=== PATIENT | female | born 1950 | race Caucasian/White ===

== ENCOUNTER 2021-08-14 03:57 | Emergency (ER) | payer MEDICARE, SELFPAY ==
[2021-08-14 03:59] VITALS: PULSE 60; RESP 18; O2SAT 99; BMI 35.2
--- NOTE | 2021-08-14 04:03 | XRR_ITS ---
PROCEDURE INFORMATION: Exam: XR Chest Exam date and time: 08/14/2021 4:03 AM Age: 70 years old Clinical indication: Pain; Chest pressure; Additional info: Cp TECHNIQUE: Imaging protocol: XR of the chest. Views: 1 view. COMPARISON: CR Chest 1 [place] [id number] 08/09/2017 8:47 AM FINDINGS: Lungs: There is mild consolidation at the left costophrenic angle consistent with probable pneumonia. The right lung is clear. Pleural spaces: Unremarkable. No pleural effusion. No pneumothorax. Heart/Mediastinum: Unremarkable. No cardiomegaly. Bones/joints: There are degenerative changes throughout the spine. XR/XR chest 1V portable [id number] IMPRESSION: Probable left lung base pneumonia.
--- NOTE | 2021-08-14 04:04 | ECG_ITS ---
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 [id number]
--- NOTE | 2021-08-14 04:09 | ED_ITS ---
Documented by User: Al Campos MD 08/14/21 04:19 HPI - Chest Pain General: Chief Complaint: Chest Pain Stated Complaint: CP Time Seen by Provider: 08/14/21 03:58 Source: patient and EMS Mode of arrival: EMS Limitations: no limitations History of Present Illness: 70-year-old female states that around midnight tonight started having chest pain is been a pressure type pain in the center of her chest. She states the pain is went to her shoulder she has had some nausea with it along with shortness of breath. She states that she thought it may be reflux took some excess foods had some burping but states the pain returned. States pain is improved with nitro her pain which is currently a 2 out of 10 denies any history of heart disease states she had some shortness of breath earlier but that is since resolved as well. No vomiting no abdominal pain no abdominal tenderness. Associated symptoms: Reports dyspnea and nausea; Deny fever(s) Review of Systems Const: Denies: fever(s), chills, body aches or change in appetite Eyes: Denies: blurry vision or eye discomfort ENMT: Denies: throat pain or dental pain Card: Reports: chest pain Resp: Reports: dyspnea GI: Reports: nausea : Denies: dysuria Musc: Denies: neck pain or back pain Skin/Breast: Denies: rash Neuro: Denies: headache(s) Psych: Denies: depression Teofilo/Lymph: Denies: easy bruising All/Imm: Denies: urticaria PFSH ED PFSH: Family History (Updated 08/14/21 @ 04:09 by Al Campos MD) Other CAD (coronary artery disease) Social History (Updated 08/14/21 @ 04:10 by Al Campos MD) Smoking and tobacco status: never smoked Alcohol intake: never Substance/Drug Use: never Physical Exam Const: COMMON NORMALS: no acute distress, patient oriented x3 and healthy appearing HENMT: COMMON NORMALS: normocephalic and atraumatic HEAD & SCALP: normocephalic and atraumatic Eye: COMMON NORMALS: Equal, round and reactive pupils present and EOMs intact bilaterally PUPIL: Yes Equal, round and reactive pupils present Neck/C-Spine: COMMON NORMALS: full ROM and supple Chest: COMMONS NORMALS: normal inspection of the chest and normal palpation of entire chest wall Resp: COMMON NORMALS: normal respiratory effort, No retractions, No use of accessory muscles and clear to auscultation bilaterally AUSCULTATION: clear to auscultation bilaterally Cardio: COMMON NORMALS: regular rate, regular rhythm and No murmurs present (Cardio) RATE: regular rate RHYTHM: regular rhythm GI: COMMON NORMALS: Normal to inspection, nondistended, normoactive bowel sounds present, Soft to palpation, non-tender and no masses PALPATION: Yes Soft to palpation Extremity: COMMON NORMALS: normal to inspection and full ROM Neuro: COMMON NORMALS: patient oriented x3, moves all extremities and no focal motor deficits Psych: COMMON NORMALS: mental status grossly normal, Normal thought process present and cooperative THOUGHT PROCESS: Normal thought process present Skin: COMMON NORMALS: no rashes or lesions noted and no wounds GENERAL SKIN EXAM: no rashes or lesions noted Course Vital Signs: Vital signs: Vital Signs Pulse Rate 56 L 08/14/21 04:22 Respiratory Rate 20 H 08/14/21 04:22 Blood Pressure 166/94 08/14/21 04:22 Pulse Oximetry 97 08/14/21 04:22 MDM - Chest Pain Lab Data : 08/14/21 04:10 08/14/21 04:10 Radiology Impressions Chest X-Ray 08/14/21 04:03 IMPRESSION: Probable left lung base pneumonia. Chest CTA 08/14/21 04:43 IMPRESSION: 1. Motion artifact mildly compromises the examination. No main, central or lobar pulmonary embolus is identified. 2. Solid pulmonary nodules measuring up to 2.5 mm. As per Fleischner Society 2017 guidelines for follow-up and management of pulmonary nodules: For patients at low risk (minimal or absent history of smoking and of other known risk factors), no routine follow-up. For patient at high risk (history of smoking or of other known risk factors), recommend optional CT at 12 months. 3. Mild subcarinal and periportal lymphadenopathy. 4. Coronary artery disease. Laboratory Results WBC 8.9 10^3/uL (4.0-10.0) 08/14/21 04:10 RBC 4.17 10^6/uL (4.1-5.3) 08/14/21 04:10 Hgb 12.5 g/dL (11.5-15.3) 08/14/21 04:10 Hct 37.3 % (37.0-47.0) 08/14/21 04:10 MCV 89.4 fl (81-99) 08/14/21 04:10 MCH 30.0 pg (28.0-34.0) 08/14/21 04:10 MCHC 33.5 g/dL (30.0-36.0) 08/14/21 04:10 RDW 12.3 % (12.1-15.1) 08/14/21 04:10 Plt Count 221 10^3/cmm (130-400) 08/14/21 04:10 MPV 10.6 fL (7.4-10.4) H 08/14/21 04:10 Neut % (Auto) 79.6 % 08/14/21 04:10 Lymph % (Auto) 12.5 % 08/14/21 04:10 [place] % (Auto) 6.0 % 08/14/21 04:10 Eos % (Auto) 1.0 % 08/14/21 04:10 Baso % (Auto) 0.7 % 08/14/21 04:10 Neut # (Auto) 7.07 10^3/uL (1.8-7.7) 08/14/21 04:10 Lymph # (Auto) 1.1 10^3/uL (0.8-4.8) 08/14/21 04:10 [place] # (Auto) 0.5 10^3/uL (0.2-0.9) 08/14/21 04:10 Eos # (Auto) 0.1 10^3/uL (0.0-0.8) 08/14/21 04:10 Baso # (Auto) 0.1 10^3/uL (0.0-0.1) 08/14/21 04:10 Nucleated RBC % (auto) 0 % 08/14/21 04:10 Nucleated RBCs # 0.0 /100WBC 08/14/21 04:10 PT 12.50 SECONDS (12.1-14.9) 08/14/21 04:10 INR 0.91 (0.8-1.2) 08/14/21 04:10 D-Dimer 1.05 ug/mIFEU (0-0.59) H 08/14/21 04:10 Sodium 139 mmol/L (136-145) 08/14/21 04:10 Potassium 4.4 mmol/L (3.5-5.1) 08/14/21 04:10 Chloride 105 mmol/L (98-107) 08/14/21 04:10 Carbon Dioxide 23 mmol/L (22-29) 08/14/21 04:10 Anion Gap 15.4 (5-19) 08/14/21 04:10 BUN 20 mg/dL (8-23) 08/14/21 04:10 Creatinine 0.7 mg/dL (0.5-0.9) 08/14/21 04:10 GFR Calculation Not Reportable 08/14/21 04:10 Glucose 117 mg/dL (65-115) H 08/14/21 04:10 Calculated Osmolality 292 mOsm/kg (285-295) 08/14/21 04:10 Calcium 9.1 mg/dL (8.5-10.5) 08/14/21 04:10 Total Bilirubin 0.2 mg/dL (0.15-1.2) 08/14/21 04:10 AST 20 U/L (0-32) 08/14/21 04:10 ALT 15 U/L (0-33) 08/14/21 04:10 Alkaline Phosphatase 89 IU/L (35-105) 08/14/21 04:10 Troponin T Baseline 12 ng/L (0-10) H 08/14/21 04:10 Troponin T 120 Minute 12.15 ng/L (0-10) H 08/14/21 06:20 Delta Troponin T 0.15 ABS# (0-10) 08/14/21 06:20 Total Protein 6.5 g/dL (6.6-8.7) L 08/14/21 04:10 Albumin 4.4 g/dL (3.5-5.2) 08/14/21 04:10 Globulin 2.1 g/dL (1.3-4.6) 08/14/21 04:10 Lipase 27 U/L (13-60) 08/14/21 04:10 EKG Data EKG 1: I personally reviewed and interpreted this EKG as follows: EKG interpretation date: 08/14/21 EKG interpretation time: 04:06 Interpretation: sinus dayan hr [address] or t wave abnormalities qrs 93 qtc 420 Discharge Plan Discharge Patient Disposition: Home Clinical Impression: Atypical chest pain, Benign essential HTN Prescriptions: New isosorbide mononitrate 30 mg tablet extended release 24 hr 30 mg PO DAILY Qty: 30 0RF aspirin 81 mg tablet,delayed release (DR/EC) 81 mg PO DAILY Qty: 30 0RF Discharge Orders: Discharge ED (Routine); Ordered 08/14/21 Ordered By: Hadley Hudson Discharge Diet: Usual diet Discharge Activity: Limit activity as instructed Patient Instructions: Opioid Safety Activity Restrictions/Additional Instructions: Avoid excess strenuous activity. Return if you have further chest pain start isosorbide mononitrate daily aspirin 81 mg daily Case management will call to make arrangements for you to have an outpatient stress test. Sign Out Sign Out Data: Patient Sign Out occurred on 08/14/21 at 07:09. Patient's care was discussed, and care was transferred from to Hadley Hudson DO. Coding Level of Care Code ED Manager Outpatient for Chg Fwd Exam Comprehensive Documented by User: Hadley Hudson DO 08/14/21 12:20 HPI - Chest Pain General: Chief Complaint: Chest Pain Stated Complaint: CP Time Seen by Provider: 08/14/21 03:58 PFSH ED PFSH: Family History (Updated 08/14/21 @ 04:09 by Al Campos MD) Other CAD (coronary artery disease) Social History (Updated 08/14/21 @ 04:10 by Al Campos MD) Smoking and tobacco status: never smoked Alcohol intake: never Substance/Drug Use: never Course Vital Signs: Vital signs: Vital Signs Pulse Rate 56 L 08/14/21 04:22 Respiratory Rate 20 H 08/14/21 04:22 Blood Pressure 166/94 08/14/21 04:22 Pulse Oximetry 97 08/14/21 04:22 MDM - Chest Pain Medical Decision Making Care assumed a change of shift care assumed a change of shift from Dr. Campos. Chart reviewed. Patient is having little bit of discomfort but is slightly reproducible with palpation on the left upper chest cardiac enzymes negative CTA of the chest was negative we will go and discharge patient home set her up for an outpatient Lexiscan sestamibi stress test will also start on isosorbide mononitrate aspirin daily 81 mg. Return if has further problems. Medical Records I reviewed the patient's medical records. Lab Data I reviewed the patient's lab results. : 08/14/21 04:10 08/14/21 04:10 Radiology Impressions Chest X-Ray 08/14/21 04:03 IMPRESSION: Probable left lung base pneumonia. Chest CTA 08/14/21 04:43 IMPRESSION: 1. Motion artifact mildly compromises the examination. No main, central or lobar pulmonary embolus is identified. 2. Solid pulmonary nodules measuring up to 2.5 mm. As per Fleischner Society 2017 guidelines for follow-up and management of pulmonary nodules: For patients at low risk (minimal or absent history of smoking and of other known risk factors), no routine follow-up. For patient at high risk (history of smoking or of other known risk factors), recommend optional CT at 12 months. 3. Mild subcarinal and periportal lymphadenopathy. 4. Coronary artery disease. Laboratory Results WBC 8.9 10^3/uL (4.0-10.0) 08/14/21 04:10 RBC 4.17 10^6/uL (4.1-5.3) 08/14/21 04:10 Hgb 12.5 g/dL (11.5-15.3) 08/14/21 04:10 Hct 37.3 % (37.0-47.0) 08/14/21 04:10 MCV 89.4 fl (81-99) 08/14/21 04:10 MCH 30.0 pg (28.0-34.0) 08/14/21 04:10 MCHC 33.5 g/dL (30.0-36.0) 08/14/21 04:10 RDW 12.3 % (12.1-15.1) 08/14/21 04:10 Plt Count 221 10^3/cmm (130-400) 08/14/21 04:10 MPV 10.6 fL (7.4-10.4) H 08/14/21 04:10 Neut % (Auto) 79.6 % 08/14/21 04:10 Lymph % (Auto) 12.5 % 08/14/21 04:10 [place] % (Auto) 6.0 % 08/14/21 04:10 Eos % (Auto) 1.0 % 08/14/21 04:10 Baso % (Auto) 0.7 % 08/14/21 04:10 Neut # (Auto) 7.07 10^3/uL (1.8-7.7) 08/14/21 04:10 Lymph # (Auto) 1.1 10^3/uL (0.8-4.8) 08/14/21 04:10 [place] # (Auto) 0.5 10^3/uL (0.2-0.9) 08/14/21 04:10 Eos # (Auto) 0.1 10^3/uL (0.0-0.8) 08/14/21 04:10 Baso # (Auto) 0.1 10^3/uL (0.0-0.1) 08/14/21 04:10 Nucleated RBC % (auto) 0 % 08/14/21 04:10 Nucleated RBCs # 0.0 /100WBC 08/14/21 04:10 PT 12.50 SECONDS (12.1-14.9) 08/14/21 04:10 INR 0.91 (0.8-1.2) 08/14/21 04:10 D-Dimer 1.05 ug/mIFEU (0-0.59) H 08/14/21 04:10 Sodium 139 mmol/L (136-145) 08/14/21 04:10 Potassium 4.4 mmol/L (3.5-5.1) 08/14/21 04:10 Chloride 105 mmol/L (98-107) 08/14/21 04:10 Carbon Dioxide 23 mmol/L (22-29) 08/14/21 04:10 Anion Gap 15.4 (5-19) 08/14/21 04:10 BUN 20 mg/dL (8-23) 08/14/21 04:10 Creatinine 0.7 mg/dL (0.5-0.9) 08/14/21 04:10 GFR Calculation Not Reportable 08/14/21 04:10 Glucose 117 mg/dL (65-115) H 08/14/21 04:10 Calculated Osmolality 292 mOsm/kg (285-295) 08/14/21 04:10 Calcium 9.1 mg/dL (8.5-10.5) 08/14/21 04:10 Total Bilirubin 0.2 mg/dL (0.15-1.2) 08/14/21 04:10 AST 20 U/L (0-32) 08/14/21 04:10 ALT 15 U/L (0-33) 08/14/21 04:10 Alkaline Phosphatase 89 IU/L (35-105) 08/14/21 04:10 Troponin T Baseline 12 ng/L (0-10) H 08/14/21 04:10 Troponin T 120 Minute 12.15 ng/L (0-10) H 08/14/21 06:20 Delta Troponin T 0.15 ABS# (0-10) 08/14/21 06:20 Total Protein 6.5 g/dL (6.6-8.7) L 08/14/21 04:10 Albumin 4.4 g/dL (3.5-5.2) 08/14/21 04:10 Globulin 2.1 g/dL (1.3-4.6) 08/14/21 04:10 Lipase 27 U/L (13-60) 08/14/21 04:10 Discharge Plan Discharge Patient Disposition: Home Clinical Impression: Atypical chest pain, Benign essential HTN Prescriptions: New isosorbide mononitrate 30 mg tablet extended release 24 hr 30 mg PO DAILY Qty: 30 0RF aspirin 81 mg tablet,delayed release (DR/EC) 81 mg PO DAILY Qty: 30 0RF Discharge Orders: Discharge ED (Routine); Ordered 08/14/21 Ordered By: Hadley Hudson Discharge Diet: Usual diet Discharge Activity: Limit activity as instructed Patient Instructions: Opioid Safety Activity Restrictions/Additional Instructions: Avoid excess strenuous activity. Return if you have further chest pain start isosorbide mononitrate daily aspirin 81 mg daily Case management will call to make arrangements for you to have an outpatient stress test. Sign Out Sign Out Data: Patient Sign Out occurred on 08/14/21 at 07:09. Patient's care was discussed, and care was transferred from to Hadley Hudson DO. Coding Level of Care Code ED Manager Outpatient for Chg Fwd Exam Comprehensive
[2021-08-14 04:16] LABS: Basophils # 0.1 10^3/uL (0.0-0.1); Basophils % 0.7 %; Eosinophils # 0.1 10^3/uL (0.0-0.8); Hematocrit 37.3 % (37.0-47.0); Hemoglobin 12.5 g/dL (11.5-15.3); Lymphocytes # 1.1 10^3/uL (0.8-4.8); Lymphocytes % 12.5 %; Mean Corpuscular HGB Conc 33.5 g/dL (30.0-36.0); Mean Corpuscular Volume 89.4 fl (81-99); Mean Platelet Volume 10.6 fL (7.4-10.4); Monocytes # 0.5 10^3/uL (0.2-0.9); Neutrophils # 7.07 10^3/uL (1.8-7.7); Neutrophils % 79.6 %; Nucleated Red Blood Cells % 0 %; Platelet Count 221 10^3/cmm (130-400); Red Blood Count 4.17 10^6/uL (4.1-5.3); Red Cell Distribution Width 12.3 % (12.1-15.1); White Blood Count 8.9 10^3/uL (4.0-10.0)
[2021-08-14 04:21] VITALS: RESP 18
[2021-08-14] MEDS: morphine 4 mg/mL SDV 1 mL IVP (04:21)
[2021-08-14] MEDS: ondansetron 2 mg/ML SDV 2 mL 4 MG IVP (04:21)
[2021-08-14 04:22] VITALS: BP 166/94; PULSE 56; RESP 20; O2SAT 97
--- NOTE | 2021-08-14 04:25 | PC.NURSE ---
patient received via EMS stretcher with IV in place. states chest pain started around midnight, EMS gave NGT x2 in route with some relief. states bilateral leg pain and swelling. states legs cramp anytime she tries to relax them. tele inplace, speech clear respirations even equal and unlabored. managing secretions.
[2021-08-14 04:29] LABS: INR 0.91 (0.8-1.2)
[2021-08-14 04:32] LABS: D Dimer 1.05 ug/mIFEU (0-0.59)
--- NOTE | 2021-08-14 04:43 | CTR_ITS ---
PROCEDURE INFORMATION: Exam: CTA Chest With Contrast Exam date and time: 08/14/2021 4:43 AM Age: 70 years old Clinical indication: Shortness of breath. TECHNIQUE: Imaging protocol: Computed tomographic angiography of the chest with contrast. 3D rendering (Not supervised by radiologist): MIP and/or 3D reconstructed images were created by the technologist. Radiation optimization: All CT scans at this facility use at least one of these dose optimization techniques: automated exposure control; mA and/or kV adjustment per patient size (includes targeted exams where dose is matched to clinical indication); or iterative reconstruction. Contrast material: OMNI 350; Contrast volume: 95 ml; Contrast route: INTRAVENOUS (IV); COMPARISON: CTA Chest-Pulmonary Emb [id number] 06/01/2016 10:47 AM RADIATION DOSE METRICS: Total DLP (mGy-cm): 520.72 FINDINGS: Pulmonary arteries: Motion artifact mildly compromises the examination. No main, central or lobar pulmonary embolus is identified. Aorta: No thoracic aortic aneurysm. Lungs: A solid pulmonary nodule in the right apex measures 2.5 mm (image 106). A solid fissural nodule on the right measures 2.3 mm (image 162). Subsegmental atelectasis at the left base. No pulmonary mass. Pleural spaces: No pleural effusion. No pneumothorax. Heart: Coronary arterial calcifications are noted. No pericardial effusion. Lymph nodes: A periportal lymph node measures 1.3 x 1.1 cm. A subcarinal lymph node measures 1.0 x 2.4 cm (image 225). Diaphragm: No hiatal hernia. Bones/joints: No acute fracture is identified. CT/CT angio chest PE protcl [id number] IMPRESSION: 1. Motion artifact mildly compromises the examination. No main, central or lobar pulmonary embolus is identified. 2. Solid pulmonary nodules measuring up to 2.5 mm. As per Fleischner Society 2017 guidelines for follow-up and management of pulmonary nodules: For patients at low risk (minimal or absent history of smoking and of other known risk factors), no routine follow-up. For patient at high risk (history of smoking or of other known risk factors), recommend optional CT at 12 months. 3. Mild subcarinal and periportal lymphadenopathy. 4. Coronary artery disease.
[2021-08-14 04:48] LABS: Troponin(5th) Baseline 12 ng/L (0-10)
[2021-08-14 04:49] LABS: Albumin Level 4.4 g/dL (3.5-5.2); Alkaline Phosphatase 89 IU/L (35-105); Blood Urea Nitrogen 20 mg/dL (8-23); Calcium 9.1 mg/dL (8.5-10.5); Carbon Dioxide 23 mmol/L (22-29); Chloride 105 mmol/L (98-107); Creatinine Clr Calc Pharmacy 79.2011; Globulin 2.1 g/dL (1.3-4.6); Glucose 117 mg/dL (65-115); Lipase 27 U/L (13-60); Osmolality Calculated 292 mOsm/kg (285-295); Sodium 139 mmol/L (136-145); Total Bilirubin 0.2 mg/dL (0.15-1.2); Total Protein 6.5 g/dL (6.6-8.7)
[2021-08-14 04:52] LABS: Alanine Aminotransferase 15 U/L (0-33); Anion Gap 15.4 (5-19); Aspartate Amino Transferase 20 U/L (0-32); Potassium 4.4 mmol/L (3.5-5.1)
--- NOTE | 2021-08-14 06:04 | ECG_ITS ---
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 Measurements Intervals [place] Rate: 49 P: 42 [place]: 173 QRS: 16 QRSD: 105 T: 51 QT: 468 QTc: 424 Interpretive Statements SINUS BRADYCARDIA Compared to ECG 08/14/2021 04:06:11 No significant changes Electronically Signed On 08-14-2021 17:12:54 PROFESSOR OF COMMUNICATION AND WRITING by Ирина Ken M.D. [id number]
[2021-08-14] MEDS: iohexol 350 mg/mL 100 mL Btl IV (06:56)
[2021-08-14 07:10] LABS: Troponin 5 2HR 12.15 ng/L (0-10)
[2021-08-14 07:11] LABS: Troponin 5 2HR Delta 0.15 ABS# (0-10)
--- NOTE | 2021-08-14 07:58 | ECG_ITS ---
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 Measurements Intervals [place] Rate: 52 P: 69 [place]: 178 QRS: -3 QRSD: 94 T: 37 QT: 420 QTc: 392 Interpretive Statements SINUS BRADYCARDIA Compared to ECG 08/14/2021 06:24:51 No significant changes Electronically Signed On 08-14-2021 17:09:17 DIRECTOR OF DIRECT MARKETING by Ирина Ken M.D. [id number]
--- NOTE | 2021-08-14 14:11 | DCPLANNER ---
Addendum entered by Adelita Perales 09/14/21 14:09: catering and events manager got notification that patient will need to see her primary care physician for the stress test. Insurance will not pay for the test ordered out of the ER. catering and events manager tried to call patient, unable to reach patient or leave a voicemail for patient. Original Note: catering and events manager had message to schedule an outpatient stress test for patient. catering and events manager faxed signed order to centralized scheduling, who will call patient with appointment information.
== END 2021-08-14 08:46 | disposition home or self-care (01) ==
PROVIDERS: Emergency Medicine; Emergency Provider Family Medicine
DX: R07.89 Other chest pain (principal); I10 Essential (primary) hypertension; Z79.82 Long term (current) use of aspirin
CPT/HCPCS: 36415; 71045; 71275; 80053; 83690; 84484; 85025; 85378; 85610; 93005; 96374; 96375; 99284; J2270; J2405; Q9967

== ENCOUNTER 2021-09-26 07:02 | Emergency (ER) | payer MEDICARE, SELFPAY ==
--- NOTE | 2021-09-26 07:06 | XRR_ITS ---
PROCEDURE INFORMATION: Exam: XR Chest Exam date and time: 09/26/2021 7:06 AM Age: 70 years old Clinical indication: Pain; Angina pectoris; Additional info: Chest pain TECHNIQUE: Imaging protocol: XR of the chest. Views: 1 view. COMPARISON: CR (CHEST, ) 08/14/2021 4:31 AM FINDINGS: Lungs: See Soft tissues finding. Pleural spaces: Unremarkable. No pleural effusion. No pneumothorax. Heart/Mediastinum: Accentuated heart size could partially be on the basis of AP technique. Bones/joints: Degenerative change of thoracic spine. Osteopenia. Soft tissues: Epicardial fat tissue or underlying component of atelectasis lower left lung similar to previous. XR/XR chest 1V portable [id number] IMPRESSION: 1. Stable chest without acute process. 2. Atelectasis or epicardial fat pad lower left lung.
--- NOTE | 2021-09-26 07:06 | W.ED.CHESTPA ---
HPI - Chest Pain General: Chief Complaint: Extremity Problem,Nontraumatic Stated Complaint: CHEST PAIN Time Seen by Provider: 09/26/21 07:06 Source: patient Mode of arrival: EMS Limitations: no limitations History of Present Illness: 70-year-old female presents emergency room complaining of some mild chest discomfort on the left side as well as cramping and swelling in her legs. This began around 3 AM this morning she was awake already. She is some mild shortness of breath with it and increasing swelling in her legs the last few days. She was seen a month ago and started on isosorbide mononitrate and scheduled for stress test which was never done. They did start Lasix and potassium. She had not taken her blood pressure medicines yet this morning. Blood pressures continue to be elevated she is also still taking the isosorbide mononitrate. She has no history of DVT. No sudden acute chest pain or shortness of breath. MD complaint: chest pain Onset (ago): hour(s) Timing of current episode: episodic Onset: during rest Pain location: left chest Quality: heaviness Relieving factors: nothing Exacerbating factors: nothing Associated symptoms: Reports dyspnea; Deny abdominal pain, diaphoresis, fever(s), leg edema, nausea, palpitations, sense of impending doom, syncope or vomiting Treatment prior to arrival: aspirin Review of Systems Const: Denies: fever(s) or diaphoresis ENMT: Denies: throat pain, ear or mastoid pain, nasal discharge or nasal congestion Card: Reports: chest pain, edema and swelling of feet/ankles; Denies: palpitations or syncope Resp: Reports: dyspnea GI: Denies: abdominal pain, nausea or vomiting : Denies: flank pain, difficulty voiding, dysuria, urinary frequency or urinary urgency Skin/Breast: Denies: rash or pruritus PFS ED PFSH: Medical History (Updated 09/26/21 @ 13:09 by Hadley Hudson DO) Hypertension Surgical History (Updated 09/26/21 @ 07:33 by Hadley Hudson DO) H/O tubal ligation Hx of tonsillectomy Family History Other CAD (coronary artery disease) Social History Smoking and tobacco status: never smoked Alcohol intake: never Household members: spouse Marital status: Current occupational status: retired Current gender identity: Female Physical Exam Const: GENERAL APPEARANCE: cooperative and comfortable ORIENTATION/CONSCIOUSNESS: Yes awake, Yes oriented to person, Yes oriented to place and Yes oriented to time HENMT: COMMON NORMALS: normocephalic, atraumatic and hearing grossly normal bilaterally HEAD & SCALP: normocephalic and atraumatic Neck/C-Spine: COMMON NORMALS: no JVD Resp: COMMON NORMALS: normal respiratory effort, No retractions, No use of accessory muscles and clear to auscultation bilaterally AUSCULTATION: clear to auscultation bilaterally Cardio: COMMON NORMALS: no JVD, regular rate, regular rhythm and No murmurs present (Cardio) RATE: regular rate RHYTHM: regular rhythm GI: COMMON NORMALS: Soft to palpation and No hepatosplenomegaly present AUSCULTATION: Yes normoactive bowel sounds PALPATION: Yes Soft to palpation, No Tenderness to palpation present (GI), No Guarding due to palpation present (GI) and Yes No hepatosplenomegaly present Extremity: COMMON NORMALS: normal to inspection, capillary refill normal, no clubbing, cyanosis or edema and no calf tenderness GENERAL: Yes edema (+2 LE bilateral) Neuro: SENSORIUM/ORIENTATION: Yes oriented to person, Yes oriented to place and Yes oriented to time Skin: COMMON NORMALS: no rashes or lesions noted GENERAL SKIN EXAM: no rashes or lesions noted Course Vital Signs: Vital signs: Vital Signs Pulse Rate 65 09/26/21 13:38 Respiratory Rate 14 09/26/21 13:38 Blood Pressure 169/68 09/26/21 13:38 Pulse Oximetry 99 09/26/21 13:38 MDM - Chest Pain Medical Decision Making Clinically patient is not in significant heart failure at this time. Labs and imaging reviewed. No evidence of DVT. Blood pressure remains markedly elevated I will increase Lasix and increase lisinopril follow-up with primary care. Return if has further problems. Medical Records I reviewed the patient's medical records. Lab Data I reviewed the patient's lab results. : 09/26/21 09:21 09/26/21 09:21 Radiology Impressions Chest X-Ray 09/26/21 07:06 IMPRESSION: 1. Stable chest without acute process. 2. Atelectasis or epicardial fat pad lower left lung. Laboratory Results WBC 7.3 10^3/uL (4.0-10.0) 09/26/21 09:21 RBC 4.08 10^6/uL (4.1-5.3) L 09/26/21 09:21 Hgb 12.2 g/dL (11.5-15.3) 09/26/21 09: Hct 36.9 % (37.0-47.0) L 09/26/21 09:21 MCV 90.4 fl (81-99) 09/26/21 09:21 MCH 29.9 pg (28.0-34.0) 09/26/21 09: MCHC 33.1 g/dL (30.0-36.0) 09/26/21 09: RDW 12.4 % (12.1-15.1) 09/26/21 09: Plt Count 228 10^3/cmm (130-400) 09/26/21 09: MPV 10.7 fL (7.4-10.4) H 09/26/21 09:21 Neut % (Auto) 80.2 % 09/26/21 09:21 Lymph % (Auto) 13.0 % 09/26/21 09:21 [place] % (Auto) 5.2 % 09/26/21 09:21 Eos % (Auto) 0.8 % 09/26/21:21 Baso % (Auto) 0.5 % 09/26/21:21 Neut # (Auto) 5.84 10^3/uL (1.8-7.7) 09/26/21 09:21 Lymph # (Auto) 1.0 10^3/uL (0.8-4.8) 09/26/21 09:21 [place] # (Auto) 0.4 10^3/uL (0.2-0.9) 09/26/21 09: Eos # (Auto) 0.1 10^3/uL (0.0-0.8) 09/26/21 09:21 Baso # (Auto) 0.0 10^3/uL (0.0-0.1) 09/26/21 09: Nucleated RBC % (auto) 0 % 09/26/21 09:21 Nucleated RBCs # 0.0 /100WBC 09/26/21 09:21 Sodium 138 mmol/L (136-145) 09/26/21 09:21 Potassium 3.5 mmol/L (3.5-5.1) 09/26/21 09:21 Chloride 101 mmol/L (98-107) 09/26/21 09:21 Carbon Dioxide 24 mmol/L (22-29) 09/26/21 09:21 Anion Gap 16.5 (5-19) 09/26/21 09:21 BUN 14 mg/dL (8-23) 09/26/21 09:21 Creatinine 0.8 mg/dL (0.5-0.9) 09/26/21 09:21 GFR Calculation Not Reportable 09/26/21 09:21 Glucose 124 mg/dL (65-115) H 09/26/21 09:21 Calculated Osmolality 288 mOsm/kg (285-295) 09/26/21 09:21 Calcium 9.6 mg/dL (8.5-10.5) 09/26/21 09:21 Total Bilirubin 0.4 mg/dL (0.15-1.2) 09/26/21 09:21 AST 12 U/L (0-32) 09/26/21 09:21 ALT 12 U/L (0-33) 09/26/21 09:21 Alkaline Phosphatase 74 IU/L (35-105) 09/26/21 09:21 Troponin T Baseline 14 ng/L (0-10) H 09/26/21 09:21 Troponin T 120 Minute 14.38 ng/L (0-10) H 09/26/21 11:42 Delta Troponin T 0.38 ABS# (0-10) 09/26/21 11:42 Total Protein 6.1 g/dL (6.6-8.7) L 09/26/21 09:21 Albumin 4.6 g/dL (3.5-5.2) 09/26/21 09:21 Globulin 1.5 g/dL (1.3-4.6) 09/26/21 09:21 Discharge Plan Discharge Patient Disposition: Home Clinical Impression: HTN (hypertension), Swelling of both lower extremities, Chest pain Condition: Stable Prescriptions: New lisinopril 20 mg tablet 20 mg PO DAILY Qty: 30 0RF Changed Lasix 40 mg tablet 60 mg PO DAILY Qty: 30 0RF potassium chloride 10 mEq tablet extended release 10 meq PO BID Qty: 30 0RF No Action isosorbide mononitrate 30 mg tablet extended release 24 hr 30 mg PO DAILY Qty: 30 0RF aspirin 81 mg tablet,delayed release (DR/EC) 81 mg PO DAILY Qty: 30 0RF Discharge Orders: Discharge ED (Routine); Ordered 09/26/21 Ordered By: Hadley Hudson Discharge Diet: Cardiac Discharge Activity: Increase activity as tolerated Patient Instructions: Opioid Safety Activity Restrictions/Additional Instructions: Add lisinopril, increase Lasix and potassium as outlined below. Recheck with primary care doctor next week strongly recommend you follow through with the stress test that was previously recommended. 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
[2021-09-26 07:09] VITALS: BMI 37.5
[2021-09-26 07:16] VITALS: BP 193/109; PULSE 47; RESP 13; O2SAT 96
[2021-09-26 07:46] VITALS: BP 178/89; PULSE 73; RESP 19; O2SAT 98
[2021-09-26] MEDS: FUROsemide 10 mg/mL SDV 10mL 60 MG IVP (08:00)
[2021-09-26] MEDS: enalaprilat 1.25 mg/mL Inj IVP (08:01)
[2021-09-26] MEDS: hyDRALAzine 20 mg/mL INJ 1 mL 10 MG IVP (08:02)
--- NOTE | 2021-09-26 08:02 | USCV_ITS ---
Rhonda Quintana Age: 70 Gender: F : 1950 Exam Date: 09/26/2021 08:18 Ordering Phys: Hadley Hudson DO Technologist: SHERRY Exam Location: [facility] [place]_ Indication: ble swelling HISTORY: Lower extremity swelling. PROCEDURES: Venous duplex imaging was performed in bilateral lower extremities The following venous structures were evaluated: common femoral vein, profunda vein, proximal portion of the greater saphenous vein, superficial femoral vein, and the popliteal vein. In addition, the posterior tibial and peroneal trunk were evaluated. Serial compression, augmentation maneuvers, and spectral Doppler flow evaluation were performed. FINDINGS: Examination was technically limited due to body habitus. No evidence of DVT seen in any vessel visualized at this time. Bilat. Buchanan's cyst seen Bilat Edema seen in lower legs CONCLUSIONS . No evidence of right lower extremity DVT. No evidence of left lower extremity DVT. Bilateral popliteal cysts measuring 2.7 x 1.3 x 4.1 cm on right and 3.0 x 1.5x 4.7 cm on left Connor Rubi MD (Electronically Signed) Final Date: 26 September 2021 11:36 Amended: 30 September 2021 13:14 C
[2021-09-26 08:32] VITALS: RESP 16; O2SAT 98
[2021-09-26] MEDS: morphine 4 mg/mL SDV 1 mL IVP ×2 (08:32→13:37)
[2021-09-26 08:46] VITALS: BP 154/71; PULSE 73; RESP 12; O2SAT 97
--- NOTE | 2021-09-26 09:06 | ECG_ITS ---
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 Measurements Intervals [place] Rate: 70 P: 2 [place]: 175 QRS: -1 QRSD: 95 T: 44 QT: 413 QTc: 448 Interpretive Statements SINUS RHYTHM Compared to ECG 08/14/2021 08:05:49 Sinus bradycardia no longer present Electronically Signed On 09-26-2021 18:54:00 CDT by Willie Munguia M.D. [id number]
[2021-09-26 09:33] LABS: Basophils % 0.5 %; Eosinophils # 0.1 10^3/uL (0.0-0.8); Eosinophils % 0.8 %; Hematocrit 36.9 % (37.0-47.0); Hemoglobin 12.2 g/dL (11.5-15.3); Mean Corpuscular HGB Conc 33.1 g/dL (30.0-36.0); Mean Corpuscular Hemoglobin 29.9 pg (28.0-34.0); Mean Corpuscular Volume 90.4 fl (81-99); Mean Platelet Volume 10.7 fL (7.4-10.4); Monocytes # 0.4 10^3/uL (0.2-0.9); Monocytes % 5.2 %; Neutrophils # 5.84 10^3/uL (1.8-7.7); Neutrophils % 80.2 %; Nucleated Red Blood Cells % 0 %; Platelet Count 228 10^3/cmm (130-400); Red Blood Count 4.08 10^6/uL (4.1-5.3); Red Cell Distribution Width 12.4 % (12.1-15.1); White Blood Count 7.3 10^3/uL (4.0-10.0)
[2021-09-26 10:00] LABS: Troponin(5th) Baseline 14 ng/L (0-10)
[2021-09-26 10:20] LABS: Alanine Aminotransferase 12 U/L (0-33); Albumin Level 4.6 g/dL (3.5-5.2); Alkaline Phosphatase 74 IU/L (35-105); Anion Gap 16.5 (5-19); Aspartate Amino Transferase 12 U/L (0-32); Blood Urea Nitrogen 14 mg/dL (8-23); Calcium 9.6 mg/dL (8.5-10.5); Carbon Dioxide 24 mmol/L (22-29); Chloride 101 mmol/L (98-107); Globulin 1.5 g/dL (1.3-4.6); Glucose 124 mg/dL (65-115); Osmolality Calculated 288 mOsm/kg (285-295); Potassium 3.5 mmol/L (3.5-5.1); Sodium 138 mmol/L (136-145); Total Bilirubin 0.4 mg/dL (0.15-1.2); Total Protein 6.1 g/dL (6.6-8.7)
[2021-09-26 12:47] LABS: Troponin 5 2HR 14.38 ng/L (0-10); Troponin 5 2HR Delta 0.38 ABS# (0-10)
--- NOTE | 2021-09-26 13:06 | ECG_ITS ---
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 Measurements Intervals [place] Rate: 67 P: 60 [place]: 175 QRS: 31 QRSD: 99 T: 54 QT: 423 QTc: 449 Interpretive Statements SINUS RHYTHM WITH SINUS ARRHYTHMIA Compared to ECG 09/26/2021 08:09:40 No significant changes Electronically Signed On 09-26-2021 18:52:05 CDT by Willie Munguia M.D. [email or web address] - [id number]
[2021-09-26] MEDS: orphenadrine 30 mg/mL Inj 2 mL 60 MG IVP (13:36)
[2021-09-26 13:37] VITALS: RESP 19; O2SAT 98
[2021-09-26 13:38] VITALS: BP 169/68; PULSE 65; RESP 14; O2SAT 99
== END 2021-09-26 13:49 | disposition home or self-care (01) ==
PROVIDERS: Emergency Provider Family Medicine
DX: R07.9 Chest pain, unspecified (principal); I10 Essential (primary) hypertension; M79.89 Other specified soft tissue disorders; Z79.82 Long term (current) use of aspirin
CPT/HCPCS: 71045; 80053; 84484; 85025; 93005; 93970; 96374; 96375; 96376; 99284; J0360; J1940; J2270; J2360; J3490

== ENCOUNTER → 2022-01-24 12:10 | Outpatient (BNVA) | payer MEDICARE, SELFPAY | PROVIDERS: PCP Family Medicine; Visit Provider Nurse Practitioner Family | DX: R11.0 Nausea (principal); R00.1 Bradycardia, unspecified; R07.9 Chest pain, unspecified; M79.89 Other specified soft tissue disorders; I10 Essential (primary) hypertension; K52.9 Noninfective gastroenteritis and colitis, unspecified; K21.9 Gastro-esophageal reflux disease without esophagitis | CPT/HCPCS: 80053; 80061; 84443 ==

== ENCOUNTER → 2022-03-14 09:02 | Outpatient (BNVA) | payer MEDICARE, SELFPAY | PROVIDERS: PCP Family Medicine; Visit Provider Nurse Practitioner Family | DX: E87.6 Hypokalemia (principal); M79.89 Other specified soft tissue disorders; I10 Essential (primary) hypertension; R11.0 Nausea; K21.9 Gastro-esophageal reflux disease without esophagitis; E78.5 Hyperlipidemia, unspecified; R00.1 Bradycardia, unspecified | CPT/HCPCS: 80053 ==

== ENCOUNTER → 2022-04-01 12:44 | Outpatient (BNVA) | payer MEDICARE, SELFPAY | PROVIDERS: PCP Family Medicine; Visit Provider Internal Medicine | DX: R07.9 Chest pain, unspecified (principal); I10 Essential (primary) hypertension | CPT/HCPCS: 99203; 99204 ==

== ENCOUNTER 2022-05-20 12:25 | Outpatient (CLI) | payer MEDICARE, SELFPAY ==
--- NOTE | 2022-05-20 12:45 | USCV_ITS ---
Rhonda Quintana Age: 71 Gender: F : 1950 Exam Date: 05/20/2022 13:19 Ordering Phys: Malinda Villalta NP Technologist: Exam Location: [facility] [place] Indication: chest pain BP: / HR: 58 Rhythm: Sinus Technical Quality: Adequate MEASUREMENTS (Male / Female) Normal Values 2D ECHO LV Diastolic Diameter PLAX 4.6 cm 4.2 - 5.9 / 3.9 - 5.3 cm LV Systolic Diameter PLAX 2.7 cm IVS Diastolic Thickness 1.2 cm 0.6 - 1.0 / 0.6 - 0.9 cm IVS Systolic Thickness 1.3 cm LVPW Diastolic Thickness 0.9 cm 0.6 - 1.0 / 0.6 - 0.9 cm LVPW Systolic Thickness 1.1 cm LVOT Diameter 2.1 cm LV Ejection Fraction 2D Teich 73.1 % LV Ejection Fraction MOD 2C 59.5 % LV Ejection Fraction 2C AL 61.0 % LA Diameter 3.9 cm M-MODE Aortic Annulus Diameter 3.2 cm LA Ao Ratio MM 1.3 MV E Point Septal Separation 0.9 cm DOPPLER AV Peak Velocity 160.0 cm/s LVOT Peak Velocity 89.0 cm/s AV Area Cont Eq vti 2.0 cm squared AV Area Cont Eq pk 1.9 cm squared MV Area PHT 5.0 cm squared Mitral E to A Ratio 0.7 MV E' Velocity 57.5 cm/s Mitral E to MV E' Ratio 12.5 Mitral E to LV E' Lateral Ratio 18.8 Mitral E to LV E' Septal Ratio 9.4 TR Peak Velocity 323.7 cm/s TR Peak Gradient 41.9 mmHg TV Peak E Velocity 130.0 cm/s Right Atrial Pressure 3.0 mmHg Pulmonary Artery Systolic Pressu 44.9 mmHg RV Acceleration Time 0.1 s FINDINGS Left Ventricle Normal left ventricular size and systolic function, EF 61 %. Grade I/IV diastolic dysfunction (abnormal relaxation filling pattern), normal to mildly elevated filling pressures. Right Ventricle The right ventricle is normal in size and function. Right Atrium The right atrium is normal in size. Left Atrium The left atrium is normal in size. Mitral Valve Thickened mitral valve. Mild mitral valve regurgitation. Aortic Valve Thickened aortic valve. Tricuspid Valve Trace tricuspid valve regurgitation. Pulmonic Valve Pulmonic valve not well visualized. Pericardium Normal pericardium without effusion. Aorta Normal ascending aorta dimension. IVC Inferior vena cava not visualized. CONCLUSIONS Normal left ventricular size and systolic function, EF 61 %. Grade I/IV diastolic dysfunction (abnormal relaxation filling pattern), normal to mildly elevated filling pressures. Thickened mitral valve. Mild mitral valve regurgitation. Thickened aortic valve. Trace tricuspid valve regurgitation. Estimated pulmonary artery peak systolic pressure 45 mmHg There is no pericardial effusion. There are no intracardiac masses. No similar previous studies are available for comparison Dr Erendira Marino MD [facility] (Electronically Signed) Final Date: 21 May 2022 20:24 S
--- NOTE | 2022-05-20 13:10 | CT_ITS ---
WS: [id number] CT CHEST TECHNIQUE: Noncontrast CT of the chest with coronal and sagittal reformatted images. CLINICAL INFORMATION: enlarged supraclavicular lymphnode COMPARISON: CTA chest 08/14/21 DLP: 704.[address] scans at [facility] use at least one of these dose optimization techniques: automated e xposure control; mA and/or kV adjustment per patient size (includes targeted exams where dose is matc hed to clinical indication); or iterative reconstruction. FINDINGS: No acute pulmonary infiltrates. Lungs well aerated. Slight subsegmental atelectasis LEFT lower lobe. Previously described RIGHT upper lobe pulmonary nodule laterally is difficult to visualize today and appears stable measuring 2.3 mm. Tiny nodule along the RIGHT fissure also appears stable. No new or s uspicious pulmonary parenchymal opacities. Hypertrophic changes thoracic spine. Small esophageal hiatal hernia. Adrenal glands are normal. CT/CT chest wo con [id number] IMPRESSION: 1. Previously described tiny RIGHT upper lobe pulmonary nodules are unchanged. 2. No new suspicious pulmonary parenchymal opacities. 3. Small esophageal hiatal hernia. 4. No other significant changes compared to previous.
== END 2022-05-20 12:26 | disposition home or self-care (01) ==
LOC: RAD 12:25
PROVIDERS: PCP Nurse Practitioner Family; Visit Provider Nurse Practitioner Family
DX: I10 Essential (primary) hypertension (principal); M79.89 Other specified soft tissue disorders; R00.1 Bradycardia, unspecified; R59.0 Localized enlarged lymph nodes; R91.1 Solitary pulmonary nodule; I05.9 Rheumatic mitral valve disease, unspecified; I35.8 Other nonrheumatic aortic valve disorders
CPT/HCPCS: 71250; 93306

== ENCOUNTER 2023-01-12 09:19 | Emergency (ER) | payer MEDICARE, SELFPAY ==
[2023-01-12 09:26] VITALS: BP 225/96; PULSE 63; RESP 18; TEMP 36.6; O2SAT 99
--- NOTE | 2023-01-12 09:39 | CTR_ITS ---
PROCEDURE INFORMATION: Exam: CT Head Without Contrast Exam date and time: 01/12/2023 10:05 AM Age: 72 years old Clinical indication: Pain/headache. TECHNIQUE: Imaging protocol: Computed tomography of the head without contrast. Radiation optimization: All CT scans at this facility use at least one of these dose optimization techniques: automated exposure control; mA and/or kV adjustment per patient size (includes targeted exams where dose is matched to clinical indication); or iterative reconstruction. REPORTING DATA: Count of CT and Cardiac NM exams in prior 12 months: This patient has received [address] and 0 known cardiac nuclear medicine studies in the 12 months prior to the current study. COMPARISON: No relevant prior studies available. RADIATION DOSE METRICS: Total DLP (mGy-cm): 1194.08 FINDINGS: Brain: No acute intracranial hemorrhage. 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 No mass, mass effect or midline shift. There is no evidence of acute large vessel infarct. There is mild patchy subcortical and periventricular hypodensity, most commonly associated with small vessel ischemic disease of indeterminate age. The posterior fossa is grossly unremarkable; however, it is partially obscurred by beam hardening artifact. Cerebral ventricles: The ventricles are prominent, compatible with mild parenchymal volume loss. Paranasal sinuses: Retention cysts or polyps in the maxillary sinuses. Mastoid air cells: No mastoid effusion. Orbital cavities: The visualized orbits are unremarkable. Bones/joints: No acute fracture is seen. Soft tissues: No significant scalp soft tissue swelling. CT/CT head wo con* [id number] IMPRESSION: 1. 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 Consider MRI to further assess if clinically concern for acute lacunar infarct. 2. Mild senescent changes as above. 3. No acute intracranial hemorrhage.
--- NOTE | 2023-01-12 09:42 | W.ED.HA ---
HPI - Headache General: Chief Complaint: Headache Stated Complaint: n/v, headache Time Seen by Provider: 01/12/23 09:27 Source: patient Mode of arrival: ambulatory Limitations: no limitations History of Present Illness: 72-year-old female states she has been having nausea vomiting over the last 3 days. She is also had some left-sided neck pain is worse with movement and palpation along with a headache. She denies any fever she denies any abdominal pain she denies any worsening improving factors. Associated symptoms: Reports nausea and vomiting; Deny chest pain, fever(s) or rash Review of Systems Const: Denies: fever(s), chills, body aches or change in appetite Eyes: Denies: blurry vision or eye discomfort ENMT: Denies: throat pain or dental pain Card: Denies: chest pain Resp: Denies: dyspnea GI: Reports: nausea and vomiting; Denies: abdominal pain Musc: Denies: neck pain or back pain Skin/Breast: Denies: rash Neuro: Reports: headache(s) PFSH ED PFSH: Medical History Hypertension Surgical History H/O tubal ligation Hx of tonsillectomy Family History Other CAD (coronary artery disease) Social History Smoking and tobacco status: never smoked Alcohol intake: never Substance/Drug Use: never Household members: spouse Marital status: Current occupational status: retired Current gender identity: Female Physical Exam Const: COMMON NORMALS: no acute distress, patient oriented x3 and healthy appearing HENMT: COMMON NORMALS: normocephalic and atraumatic HEAD & SCALP: normocephalic and atraumatic Eye: COMMON NORMALS: Equal, round and reactive pupils present PUPIL: Yes Equal, round and reactive pupils present Neck/C-Spine: COMMON NORMALS: full ROM and supple OTHER: tender over left neck Chest: COMMONS NORMALS: normal inspection of the chest and normal palpation of entire chest wall Resp: COMMON NORMALS: normal respiratory effort, No retractions, No use of accessory muscles and clear to auscultation bilaterally AUSCULTATION: clear to auscultation bilaterally Cardio: COMMON NORMALS: regular rate, regular rhythm and No murmurs present (Cardio) RATE: regular rate RHYTHM: regular rhythm GI: COMMON NORMALS: Normal to inspection, nondistended, normoactive bowel sounds present, Soft to palpation, non-tender and no masses PALPATION: Yes Soft to palpation Extremity: COMMON NORMALS: normal to inspection and full ROM Neuro: COMMON NORMALS: patient oriented x3, moves all extremities and no focal motor deficits Psych: COMMON NORMALS: mental status grossly normal, Normal thought process present and cooperative THOUGHT PROCESS: Normal thought process present Skin: COMMON NORMALS: no rashes or lesions noted and no wounds GENERAL SKIN EXAM: no rashes or lesions noted Course Vital Signs: Vital signs: Vital Signs Temperature 97.9 F 01/12/23 09:26 Pulse Rate 64 01/12/23 10:32 Respiratory Rate 18 01/12/23 10:32 Blood Pressure 240/98 01/12/23 10:32 Pulse Oximetry 98 01/12/23 10:32 Oxygen Delivery Me thod Room Air 01/12/23 10:32 MDM - Headache Medical Decision Making Patient presents here with nausea vomiting along with a headache she feels much improved after Zofran and morphine head CT here is normal no signs of meningitis blood work is normal as well besides a hypokalemia she states she is on potassium tablet daily but has not been taking it due to her nausea did give her potassium here we will write her for Zofran she is to follow-up with PCP and return if worsening. Medical Records I reviewed the patient's medical records. Lab Data I reviewed the patient's lab results. 01/12/23 09:53 01/12/23 09:[address] 01/12/23 09:39 IMPRESSION: 1. 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 Consider MRI to further assess if clinically concern for acute lacunar infarct. 2. Mild senescent changes as above. 3. No acute intracranial hemorrhage. Laboratory Results WBC 9.3 10^3/uL (4.0-10.0) 01/12/23 09:53 RBC 4.13 10^6/uL (4.1-5.3) 01/12/23 09:53 Hgb 12.4 g/dL (11.5-15.3) 01/12/23 09:53 Hct 35.8 % (37.0-47.0) L 01/12/23 09:53 MCV 86.7 fl (81-99) 01/12/23 09:53 MCH 30.0 pg (28.0-34.0) 01/12/23 09:53 MCHC 34.6 g/dL (30.0-36.0) 01/12/23 09:53 RDW 12.6 % (12.1-15.1) 01/12/23 09:53 Plt Count 217 10^3/cmm (130-400) 01/12/23 09:53 MPV 9.9 fL (7.4-10.4) 01/12/23 09:53 Neut % (Auto) 80.3 % 01/12/23 09:53 Lymph % (Auto) 12.2 % 01/12/23 09:53 [place] % (Auto) 6.4 % 01/12/23 09:53 Eos % (Auto) 0.3 % 01/12/23 09:53 Baso % (Auto) 0.5 % 01/12/23 09:53 Neut # (Auto) 7.48 10^3/uL (1.8-7.7) 01/12/23 09:53 Lymph # (Auto) 1.1 10^3/uL (0.8-4.8) 01/12/23 09:53 [place] # (Auto) 0.6 10^3/uL (0.2-0.9) 01/12/23 09:53 Eos # (Auto) 0.0 10^3/uL (0.0-0.8) 01/12/23 09:53 Baso # (Auto) 0.1 10^3/uL (0.0-0.1) 01/12/23 09:53 Nucleated RBC % (auto) 0 % 01/12/23 09:53 Nucleated RBCs # 0.0 /100WBC 01/12/23 09:53 Sodium 138 mmol/L (136-145) 01/12/23 09:53 Potassium 2.7 mmol/L (3.5-5.1) L* 01/12/23 09:53 Chloride 98 mmol/L (98-107) 01/12/23 09:53 Carbon Dioxide 25 mmol/L (22-29) 01/12/23 09:53 Anion Gap 17.7 (5-19) 01/12/23 09:53 BUN 16 mg/dL (8-23) 01/12/23 09:53 Creatinine 1.0 mg/dL (0.5-0.9) H 01/12/23 09:53 GFR Calculation Not Reportable 01/12/23 09:53 Glucose 98 mg/dL (65-115) 01/12/23 09:53 Calculated Osmolality 287 mOsm/kg (285-295) 01/12/23 09:53 Calcium 9.4 mg/dL (8.5-10.5) 01/12/23 09:53 Total Bilirubin 0.7 mg/dL (0.15-1.2) 01/12/23 09:53 AST 12 U/L (0-32) 01/12/23 09:53 ALT 12 U/L (0-33) 01/12/23 09:53 Alkaline Phosphatase 80 U/L (35-105) 01/12/23 09:53 Total Protein 7.0 g/dL (6.6-8.7) 01/12/23 09:53 Albumin 4.6 g/dL (3.5-5.2) 01/12/23 09:53 Globulin 2.4 g/dL (1.3-4.6) 01/12/23 09:53 Lipase 19 U/L (13-60) 01/12/23 09:53 Discharge Plan Discharge Patient Disposition: Home Clinical Impression: Headache, Hypokalemia, Vomiting Condition: Stable Prescriptions: No Action ondansetron HCl 4 mg tablet 4 mg PO Q4H PRN (Reason: nausea and vomiting) Qty: 90 1RF pantoprazole [Protonix] 40 mg tablet,delayed release (DR/EC) 40 mg PO DAILY 90 Days Qty: 90 1RF potassium chloride 20 mEq tablet extended release 20 meq PO DAILY 90 Days Qty: 90 1RF hydrochlorothiazide 50 mg tablet 25 mg PO DAILY hydrochlorothiazide 25 mg tablet 25 mg PO DAILY 90 Days Qty: 90 1RF simvastatin 20 mg tablet 20 mg PO DAILY 90 Days Qty: 90 1RF Hold Instructions: leg cramps isosorbide mononitrate 30 mg tablet extended release 24 hr See Rx Instructions .ROUTE .COMPLEX Qty: 30 0RF Dose Instruction: Take 1 tablet by mouth once daily Rx Instructions: Take 1 tablet by mouth once daily clindamycin HCl 300 mg capsule 300 mg PO TID Qty: 30 0RF aspirin 81 mg tablet,delayed release (DR/EC) 81 mg PO DAILY Qty: 30 0RF Discharge Orders: Discharge ED (Routine); Ordered 01/12/23 Ordered By: Al Campos Referrals: Malinda Villalta NP [Primary Care Provider] - Discharge Diet: Advance as tolerated Discharge Activity: Resume usual activity Patient Instructions: Acute Headache (ED), Acute Nausea and Vomiting (ED) Coding Level of Care Code ED 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
[2023-01-12 09:59] LABS: Basophils # 0.1 10^3/uL (0.0-0.1); Basophils % 0.5 %; Eosinophils % 0.3 %; Hematocrit 35.8 % (37.0-47.0); Hemoglobin 12.4 g/dL (11.5-15.3); Lymphocytes # 1.1 10^3/uL (0.8-4.8); Lymphocytes % 12.2 %; Mean Corpuscular HGB Conc 34.6 g/dL (30.0-36.0); Mean Corpuscular Volume 86.7 fl (81-99); Mean Platelet Volume 9.9 fL (7.4-10.4); Monocytes # 0.6 10^3/uL (0.2-0.9); Monocytes % 6.4 %; Neutrophils # 7.48 10^3/uL (1.8-7.7); Neutrophils % 80.3 %; Nucleated Red Blood Cells % 0 %; Platelet Count 217 10^3/cmm (130-400); Red Blood Count 4.13 10^6/uL (4.1-5.3); Red Cell Distribution Width 12.6 % (12.1-15.1); White Blood Count 9.3 10^3/uL (4.0-10.0)
[2023-01-12 10:16] LABS: Alanine Aminotransferase 12 U/L (0-33); Albumin Level 4.6 g/dL (3.5-5.2); Alkaline Phosphatase 80 U/L (35-105); Anion Gap 17.7 (5-19); Aspartate Amino Transferase 12 U/L (0-32); Blood Urea Nitrogen 16 mg/dL (8-23); Calcium 9.4 mg/dL (8.5-10.5); Carbon Dioxide 25 mmol/L (22-29); Chloride 98 mmol/L (98-107); Creatinine Clr Calc Pharmacy 63.1031; Globulin 2.4 g/dL (1.3-4.6); Glucose 98 mg/dL (65-115); Lipase 19 U/L (13-60); Osmolality Calculated 287 mOsm/kg (285-295); Sodium 138 mmol/L (136-145); Total Bilirubin 0.7 mg/dL (0.15-1.2)
[2023-01-12 10:22] LABS: Potassium 2.7 mmol/L (3.5-5.1)
[2023-01-12] MEDS: hyDRALAzine 20 mg/mL INJ 1 mL 10 MG IVP (10:31)
[2023-01-12] MEDS: ondansetron 2 mg/ML SDV 2 mL 4 MG IVP (10:31)
[2023-01-12 10:32] VITALS: BP 240/98; PULSE 64; RESP 18; O2SAT 98
[2023-01-12] MEDS: morphine 4 mg/mL SDV 1 mL IVP (10:32)
[2023-01-12] MEDS: potassium chloride ER 20 mEq Tablet 60 MEQ PO (10:51)
[2023-01-12 11:23] VITALS: BP 173/89
== END 2023-01-12 11:24 | disposition home or self-care (01) ==
PROVIDERS: Emergency Provider Emergency Medicine; PCP Nurse Practitioner Family
DX: R51.9 Headache, unspecified (principal); E87.6 Hypokalemia; R11.11 Vomiting without nausea; Z79.82 Long term (current) use of aspirin; I10 Essential (primary) hypertension
CPT/HCPCS: 36415; 70450; 80053; 83690; 85025; 96374; 96375; 99285; J0360; J2270; J2405

== ENCOUNTER → 2023-02-05 09:49 | Outpatient (BNVA) | payer MEDICARE, SELFPAY | PROVIDERS: PCP Nurse Practitioner Family; Visit Provider Nurse Practitioner Family | DX: E87.6 Hypokalemia (principal); E78.5 Hyperlipidemia, unspecified; I10 Essential (primary) hypertension; M79.89 Other specified soft tissue disorders; R11.0 Nausea; K21.9 Gastro-esophageal reflux disease without esophagitis; R25.2 Cramp and spasm; G25.81 Restless legs syndrome; R20.2 Paresthesia of skin; R53.83 Other fatigue; E55.9 Vitamin D deficiency, unspecified | CPT/HCPCS: 80053; 80061; 82306; 82607; 82746; 83550; 83735 ==

== ENCOUNTER → 2023-08-15 13:18 | Outpatient (BNVA) | payer MEDICARE, SELFPAY | PROVIDERS: PCP Nurse Practitioner Family; Visit Provider Nurse Practitioner Family | DX: I10 Essential (primary) hypertension (principal); E78.5 Hyperlipidemia, unspecified; E55.9 Vitamin D deficiency, unspecified; R00.1 Bradycardia, unspecified; M79.89 Other specified soft tissue disorders; R11.0 Nausea; K21.9 Gastro-esophageal reflux disease without esophagitis; E87.6 Hypokalemia; G25.81 Restless legs syndrome; R53.83 Other fatigue; E78.2 Mixed hyperlipidemia | CPT/HCPCS: 80053; 80061; 82306; 84443 ==

== ENCOUNTER → 2023-12-16 12:10 | Outpatient (BNVA) | payer MEDICARE, SELFPAY | PROVIDERS: PCP Nurse Practitioner Family; Visit Provider Nurse Practitioner Family | DX: M25.551 Pain in right hip (principal); I10 Essential (primary) hypertension; R00.1 Bradycardia, unspecified; Z79.899 Other long term (current) drug therapy | CPT/HCPCS: 80053; 85025 ==

== ENCOUNTER → 2024-04-08 10:24 | Outpatient (BNVA) | payer MEDICARE, SELFPAY | PROVIDERS: PCP Nurse Practitioner Family; Visit Provider Nurse Practitioner Family | DX: R07.89 Other chest pain (principal) | CPT/HCPCS: 93005 ==

== ENCOUNTER → 2024-09-28 12:56 | Outpatient (BNVA) | payer MEDICARE, SELFPAY | PROVIDERS: PCP Nurse Practitioner Family; Visit Provider Nurse Practitioner Family | DX: I10 Essential (primary) hypertension (principal); E55.9 Vitamin D deficiency, unspecified; E04.9 Nontoxic goiter, unspecified; E78.2 Mixed hyperlipidemia; R00.1 Bradycardia, unspecified; G89.29 Other chronic pain | CPT/HCPCS: 80053; 80061; 80307; 82306; 82607; 82728; 84443; 85025 ==

== ENCOUNTER → 2025-01-11 10:33 | Outpatient (BNVA) | payer MEDICARE, SELFPAY | PROVIDERS: PCP Nurse Practitioner Family; Visit Provider Nurse Practitioner Family | DX: I10 Essential (primary) hypertension (principal); E78.2 Mixed hyperlipidemia; E55.9 Vitamin D deficiency, unspecified; M25.50 Pain in unspecified joint | CPT/HCPCS: 80053; 80061; 82306; 82607; 83735; 84439; 84443; 84550; 85025; 85651; 86038; 86140; 86200; 86431 ==

== ENCOUNTER 2025-01-27 14:17 | Emergency (ER) | payer MEDICARE, SELFPAY ==
[2025-01-27 14:41] VITALS: BP 186/78; PULSE 68; RESP 18; TEMP 36.9; O2SAT 99
[2025-01-27 14:44] VITALS: BP 184/86; PULSE 67; O2SAT 96
--- OUTSIDE RECORDS SUMMARY | 2025-01-27 15:00 | XMS_ITS | Continuity of Care Document ---
Author Organization [facility] Address [address] [place] [address] Social History Not on File Plan of Treatment Not on file
[2025-01-27] MEDS: rabies IG 300 unit/mL SDV 1 mL 2130 UNIT IM (16:42)
[2025-01-27] MEDS: rabies vaccine 2.5 unit SDV IM (16:43)
[2025-01-27 16:53] VITALS: BP 188/75; PULSE 55; O2SAT 100
[2025-01-27 17:13] VITALS: BP 126/89; PULSE 53; O2SAT 98
[2025-01-27 18:26] VITALS: BP 128/92; PULSE 79; O2SAT 98
--- NOTE | 2025-01-27 23:22 | ED_ITS ---
HPI - Animal Bite General: Chief Complaint: Animal Bite Stated Complaint: rabies shot Time Seen by Provider: 01/27/25 15:01 History of Present Illness: 74-year-old female patient presents to [facility] emergency department with a cat bite to her right hand. Patient states this happened 3 days ago and is had some swelling today patient's presenting because she is requesting the rabies vaccine. Patient states it was a stray cat and she was not able to apprehend it. Patient's tetanus shot is up-to-date patient denies any fever Related Data Previous Rx's ?Medication ?Instructions ?Recorded aspirin 81 mg tablet,delayed 81 mg PO DAILY #30 tabs 0 08/14/21 release cholecalciferol (vitamin D3) 1,250 50,000 unit PO .wee kly #4 tabs 10/11/24 mcg (50,000 unit) tablet mupirocin 2 % topical ointment 1 applic topical BID #2 2 grams 12/20/24 (Centany) citalopram 20 mg tablet 20 mg PO DAILY 30 days #30 t abs 01/06/25 hydrochlorothiazide 50 mg tablet 50 mg PO QAM #90 tabs 01/11/25 isosorbide mononitrate 30 mg 30 mg PO DAILY #90 tabs 0 01/11/25 tablet,extended release 24 hr ondansetron 4 mg disintegrating 4 mg PO TID #30 tabs 0 01/11/25 tablet pantoprazole 40 mg tablet,delayed 40 mg PO DAILY 90 da ys #90 tabs 01/11/25 release (Protonix) potassium chloride 20 mEq 20 meq PO DAILY 90 days #90 tabs 01/11/25 tablet,extended release pregabalin 75 mg capsule (Lyrica) 75 mg PO BID #60 cap s 01/11/25 ropinirole 1 mg tablet See Rx Instructions .Route 0 01/11/25 .COMPLEX #180 tabs tizanidine 2 mg tablet 2 mg PO BID PRN muscle spast icity 01/11/25 #180 tabs wheelchair #1 ea 01/11/25 amoxicillin 875 mg-potassium 1 tab PO BID 10 days #20 tabs 01/27/25 clavulanate 125 mg tablet Allergies Allergy/AdvReac Type Severity Reaction Status Date / Time Penicillins Allergy Unknown Verified 11/22/24 17:09 meloxicam AdvReac Severe ADV-Weaknes Verified 11/22/24 17:09 s Review of Systems General: Reports: 10 or more systems reviewed and unremarkable except in HPI and below PFSH ED PFSH: Medical History (Updated 01/27/25 @ 18:23 by Linn Gupta NP) Enrolled in chronic care management Hypertension Surgical History H/O tubal ligation Hx of tonsillectomy Family History Other CAD (coronary artery disease) Social History Smoking and tobacco/nicotine status: never used tobacco/nicotine Alcohol intake: never Substance/Drug Use: never Household members: spouse Marital status: Current occupational status: retired Current gender identity: Female Physical Exam Const: COMMON NORMALS: no acute distress GENERAL APPEARANCE: cooperative and comfortable Resp: COMMON NORMALS: normal respiratory effort and clear to auscultation bilaterally EFFORT & INSPECTION: Yes able to speak in complete sentences and Yes symmetric chest movement AUSCULTATION: clear to auscultation bilaterally Cardio: COMMON NORMALS: regular rate and regular rhythm RATE: regular rate RHYTHM: regular rhythm Extremity: COMMON NORMALS: no calf tenderness and no pedal edema (Right hand is area seem like an edematous neurovascularly intact distally) Skin: COMMON NORMALS: no rashes or lesions noted GENERAL SKIN EXAM: no rashes or lesions noted Course Vital Signs: Vital signs: Vital Signs Temperature 98.4 F 01/27/25 14:41 Pulse Rate 79 01/27/25 18:26 Respiratory Rate 18 01/27/25 14:41 Blood Pressure 128/92 01/27/25 18:26 Pulse Oximetry 98 01/27/25 18:26 Oxygen Delivery Me thod Room Air 01/27/25 16:53 MDM - Animal Bite Medical Decision Making 74-year-old female patient presents to the emergency department with a cat bite to her right hand. Patient states this happened 3 days ago and is had some swelling today patient's presenting because she is requesting the rabies vaccine. Patient states it was a stray cat and she was not able to apprehend it. Patient's tetanus shot is up-to-date patient denies any fever per patient's request rabies vaccine series was initiated. Patient will be started on Augmentin patient states she does have a penicillin allergy but it was when she was a kid her mom told her she was allergic to penicillin patient states that she has had other penicillin like products and has not had any issues. All radiology interpretation(s) finalized by discharge Discharge Plan Discharge Patient Disposition: Home Clinical Impression: Cat bite Qualifiers: Encounter type: initial encounter Qualified Code(s): W55.01XA - Bitten by cat, initial encounter Condition: Stable Prescriptions: New amoxicillin-pot clavulanate 875-125 mg tablet 1 tab PO BID 10 Days Qty: 20 0RF No Action mupirocin [Centany] 2 % ointment 1 applic topical BID Qty: 22 0RF isosorbide mononitrate 30 mg tablet extended release 24 hr 30 mg PO DAILY Qty: 90 1RF hydrochlorothiazide 50 mg tablet 50 mg PO QAM Qty: 90 1RF pantoprazole [Protonix] 40 mg tablet,delayed release (DR/EC) 40 mg PO DAILY 90 Days Qty: 90 1RF potassium chloride 20 mEq tablet extended release 20 meq PO DAILY 90 Days Qty: 90 1RF ropinirole 1 mg tablet See Rx Instructions .ROUTE .COMPLEX Qty: 180 1RF Dose Instruction: Take 1 tablet by mouth twice daily Rx Instructions: Take 1 tablet by mouth twice daily tizanidine 2 mg tablet 2 mg PO BID PRN (Reason: muscle spasticity) Qty: 180 1RF ondansetron 4 mg tablet,disintegrating 4 mg PO TID Qty: 30 2RF pregabalin [Lyrica] 75 mg capsule 75 mg PO BID Qty: 60 5RF (DME) wheelchair See Rx Instructions .Route .MEDSUPPLY Qty: 1 0RF Rx Instructions: As directed cholecalciferol (vitamin D3) 1,250 mcg (50,000 unit) tablet 50,000 unit PO .weekly Qty: 4 2RF citalopram 20 mg tablet 20 mg PO DAILY 30 Days Qty: 30 2RF aspirin 81 mg tablet,delayed release (DR/EC) 81 mg PO DAILY Qty: 30 0RF Discharge Orders: Discharge ED (Routine); Ordered 01/27/25 Ordered By: Linn Gupta Referrals: Trudy Padilla FNP [Primary Care Provider, Family Practice] Discharge Diet: Advance as tolerated Discharge Activity: Increase activity as tolerated Patient Instructions: Cellulitis (ED), Opioid Safety, Pain Management, Patient Portal & José Miguel Instructions Activity Restrictions/Additional Instructions: PLease take meds as directed Please return to ER with any worsening of symptoms or concerns Return to ER for rabies vaccine series on day ?3, 7, and 14 Print Language: Latvian Coding Level of Care Code ED 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
== END 2025-01-27 18:34 | disposition home or self-care (01) ==
PROVIDERS: Emergency Provider Registered Nurse; PCP Nurse Practitioner Family
DX: S61.451A Open bite of right hand, initial encounter (principal); W55.01XA Bitten by cat, initial encounter; Z23 Encounter for immunization
CPT/HCPCS: 90375; 90471; 90675; 96372; 99283

== ENCOUNTER → 2025-02-07 10:19 | Outpatient (BNVA) | payer MEDICARE, SELFPAY | PROVIDERS: PCP Nurse Practitioner Family; Visit Provider Nurse Practitioner Family | DX: R60.0 Localized edema (principal); E78.2 Mixed hyperlipidemia | CPT/HCPCS: 80053; 83880; 85025 ==

== ENCOUNTER → 2025-02-09 12:18 | Outpatient (BNVA) | payer MEDICARE, SELFPAY | PROVIDERS: PCP Nurse Practitioner Family; Visit Provider Nurse Practitioner Family | DX: R60.0 Localized edema (principal) | CPT/HCPCS: 80048; 85025 ==

== ENCOUNTER 2025-02-10 11:00 | Oncology outpatient (recurring) (ONCR) | payer MEDICARE, SELFPAY ==
[2025-01-31] MEDS: rabies vaccine 2.5 unit SDV IM (10:57)
[2025-02-03] MEDS: rabies vaccine 2.5 unit SDV IM (12:10)
[2025-02-03 12:19] VITALS: BP 162/88; PULSE 60; RESP 16; TEMP 36.5; O2SAT 96
[2025-02-10] MEDS: rabies vaccine 2.5 unit SDV IM (11:39)
== END 2025-02-10 23:59 | disposition home or self-care (01) ==
PROVIDERS: PCP Nurse Practitioner Family; Visit Provider Registered Nurse
DX: Z53.9 Procedure and treatment not carried out, unspecified reason (principal); Z23 Encounter for immunization; Z20.3 Contact with and (suspected) exposure to rabies; T14.8XXA Other injury of unspecified body region, initial encounter; X58.XXXA Exposure to other specified factors, initial encounter
CPT/HCPCS: 90471; 90675

== ENCOUNTER → 2025-02-15 11:04 | Outpatient (BNVA) | payer MEDICARE, SELFPAY | PROVIDERS: PCP Nurse Practitioner Family; Visit Provider Nurse Practitioner Family | DX: D50.9 Iron deficiency anemia, unspecified (principal); R60.0 Localized edema; R00.1 Bradycardia, unspecified | CPT/HCPCS: 80048; 82728; 83550; 85025 ==

== ENCOUNTER → 2025-03-03 10:27 | Outpatient (BNVA) | payer MEDICARE, SELFPAY | PROVIDERS: PCP Nurse Practitioner Family; Visit Provider Nurse Practitioner Family | DX: N18.32 Chronic kidney disease, stage 3b (principal); E87.6 Hypokalemia; D64.9 Anemia, unspecified | CPT/HCPCS: 80048; 85025 ==

== ENCOUNTER → 2025-03-17 13:10 | Outpatient (BNVA) | payer MEDICARE, SELFPAY | PROVIDERS: PCP Nurse Practitioner Family; Visit Provider Family Medicine | DX: E87.1 Hypo-osmolality and hyponatremia (principal) | CPT/HCPCS: 80048 ==

== ENCOUNTER → 2025-03-22 11:50 | Outpatient (BNVA) | payer MEDICARE, SELFPAY | PROVIDERS: PCP Nurse Practitioner Family; Visit Provider Nurse Practitioner Family | DX: Z13.6 Encounter for screening for cardiovascular disorders (principal); E78.2 Mixed hyperlipidemia | CPT/HCPCS: 80053; 83880; 85025 ==

== ENCOUNTER → 2025-03-29 11:11 | Outpatient (BNVA) | payer MEDICARE, SELFPAY | PROVIDERS: PCP Nurse Practitioner Family; Visit Provider Nurse Practitioner Family | DX: E87.6 Hypokalemia (principal) | CPT/HCPCS: 80048 ==

== ENCOUNTER → 2025-04-19 12:34 | Outpatient (BNVA) | payer MEDICARE, SELFPAY | PROVIDERS: PCP Nurse Practitioner Family; Visit Provider Nurse Practitioner Family | DX: L03.115 Cellulitis of right lower limb (principal); L03.116 Cellulitis of left lower limb | CPT/HCPCS: 80048; 85025 ==